=== PATIENT | female | born 1995 | race Caucasian/White ===

== ENCOUNTER 2024-10-28 13:03 | Emergency (ER) | payer SELFPAY ==
[2024-10-28 13:40] VITALS: BP 192/139; PULSE 67; RESP 16; TEMP 37; O2SAT 99; BMI 50.1
--- NOTE | 2024-10-28 14:15 | XRR_ITS ---
PROCEDURE INFORMATION: Exam: XR Thoracic Spine Exam date and time: 10/28/2024 3:15 PM Age: 28 years old Clinical indication: Pain in thoracic spine; Upper back pain that radiates around thoracic cavity x 1 week; No known injury or recent illness; Additional info: Upper back paupper back pain that radiates around thoracic cavity x 1 week; No known injury or recent illness TECHNIQUE: Imaging protocol: Radiologic exam of the thoracic spine. Views: 3 views. COMPARISON: CR XR chest 2V* [id number] 10/28/2024 3:15 PM FINDINGS: Bones/joints: No significant scoliosis. No compression deformity or traumatic subluxation. No aggressive osseous lesions. Soft tissues: Prevertebral soft tissues within normal limits. XR/XR thoracic spine 2V [id number] IMPRESSION: No acute compression deformity or traumatic subluxation.
--- NOTE | 2024-10-28 14:15 | XRR_ITS ---
PROCEDURE INFORMATION: Exam: XR Chest Exam date and time: 10/28/2024 3:15 PM Age: 28 years old Clinical indication: Right-sided and left-sided; Upper back pain that radiates around thoracic cavity x 1 week; No known injury or recent illness TECHNIQUE: Imaging protocol: Radiologic exam of the chest. Views: 2 views. COMPARISON: CR XR thoracic spine 2V [id number] 10/28/2024 3:15 PM FINDINGS: Lungs: Unremarkable. No consolidation. Pleural spaces: Unremarkable. No pleural effusion. No pneumothorax. Heart/Mediastinum: Unremarkable. No cardiomegaly. Bones/joints: Unremarkable. XR/XR chest 2V* [id number] IMPRESSION: No acute findings.
[2024-10-28 14:16] VITALS: BP 148/84
[2024-10-28 14:38] LABS: Basophils # 0.1 10^3/uL (0.0-0.1); Eosinophils # 0.3 10^3/uL (0.0-0.8); Eosinophils % 4.6 %; Hematocrit 40.3 % (36-47); Lymphocytes # 1.9 10^3/uL (0.8-4.8); Lymphocytes % 27.6 %; Mean Corpuscular Hemoglobin 25.9 pg (27-33); Mean Corpuscular Volume 83.6 fl (85-98); Mean Platelet Volume 9.9 fL (7.4-10.4); Monocytes # 0.6 10^3/uL (0.2-0.9); Monocytes % 9.3 %; Neutrophils # 3.88 10^3/uL (1.8-7.7); Neutrophils % 57.2 %; Nucleated Red Blood Cells % 0 %; Platelet Count 315 10^3/cmm (157-399); Red Blood Count 4.82 10^6/uL (3.85-5.65); Red Cell Distribution Width 13.2 % (12.1-15.1); White Blood Count 6.78 10^3/uL (3.29-11.43)
[2024-10-28 14:56] LABS: HCG, Serum Qual Negative (Negative)
[2024-10-28 14:59] LABS: Alanine Aminotransferase 16 U/L (0-33); Albumin Level 3.9 g/dL (3.5-5.2); Alkaline Phosphatase 134 U/L (35-105); Anion Gap 11.1 (5-19); Aspartate Amino Transferase 13 U/L (0-32); Blood Urea Nitrogen 12 mg/dL (6-20); Calcium 8.6 mg/dL (8.5-10.5); Carbon Dioxide 24 mmol/L (22-29); Chloride 108 mmol/L (98-107); Creatinine Clr Calc Pharmacy 202.9897; Globulin 2.9 g/dL (1.3-4.6); Glomerular Filtration Rate 146.9 mL/min (90-130); Glucose 88 mg/dL (65-115); Osmolality Calculated 287 mOsm/kg (285-295); Potassium 4.1 mmol/L (3.5-5.1); Sodium 139 mmol/L (136-145); Total Bilirubin 0.2 mg/dL (0.15-1.2); Total Protein 6.8 g/dL (6.6-8.7)
[2024-10-28] MEDS: orphenadrine 30 mg/mL Inj 2 mL 60 MG IVP (15:13)
[2024-10-28] MEDS: ketorolac 30 mg/mL INJ 15 MG IVP (15:13)
[2024-10-28] MEDS: methylPREDNISolone sod succ 125 mg/2 mL INJ IVP (15:13)
--- NOTE | 2024-10-28 15:24 | ED_ITS ---
Documented by User: DENNIS Colon 10/28/24 17:24 HPI - Back Pain/Injury 2 General: Chief Complaint: Back Pain/Injury Stated Complaint: Back Pain, numbness in legs 1 wk ago get worse Time Seen by Provider: 10/28/24 13:38 Source: patient Mode of arrival: ambulatory Limitations: no limitations History of Present Illness: Patient is a 28-year-old female who presents to the emergency department with bilateral mid back pain. She states this began about a week ago and she denies any injury that led to this. She states she has had some numbness/tingling in her bilateral legs from about the knee down. She states she does have a history of MS but is not currently on any medications for this at this time. She denies and expects her period within the next few days. She denies any fever or chills. She denies any loss of bowel or bladder control. She denies any numbness on the inside of her upper legs (saddle paresthesias.) she denies any fall or any known traumatic injuries. She denies any chest pain or shortness of breath but does report some pain in her bilateral upper back when she takes a deep breath in. She reports pain is starting to wrap around the side of her chest on each side. She denies any blood in her urine. She denies any pain or burning with urination. She states the symptoms have been getting worse and she presents to the emergency department for further evaluation and treatment. She states she has been using some ibuprofen at home that helps a little bit but has not taken any today. She denies any allergies to any medications. She denies any history of diabetes. Associated symptoms: Deny abdominal pain, chills, dysuria, fever(s), nausea or vomiting Related Data Previous Rx's ?Medication ?Instructions ?Recorded methocarbamol 750 mg tablet 1,500 mg (2 x 750 mg) PO T ID PRN 10/28/24 muscle pain #30 tabs prednisone 20 mg tablet 40 mg (2 x 20 mg) PO DAILY 5 days 10/28/24 #20 tabs Allergies Allergy/AdvReac Type Severity Reaction Status Date / Time No Known Allergies Allergy Verified 10/28/24 14:15 Review of Systems 2 Const: Denies: fever(s) or chills Eyes: Denies: change in vision ENMT: Denies: throat pain, dental pain or ear or mastoid pain Card: Denies: chest pain, palpitations, irregular heart rhythm or edema Resp: Denies: dyspnea, productive cough, non-productive cough, wheezing or hemoptysis GI: Denies: abdominal pain, nausea, vomiting or hematemesis : Denies: flank pain, difficulty voiding, dysuria or urinary frequency Musc: Reports: back pain (Mid back); Denies: extremity pain or extremity swelling Skin/Breast: Denies: rash, pruritus or erythema Neuro: Reports: numbness in extremities (Bilateral lower legs, intermittent numbness and tingling) and sensory changes (Bilateral lower legs below the knee); Denies: headache(s) or dizziness Psych: Denies: anxiety Endo: Denies: polyuria or polydipsia Randy/Lymph: Denies: easy bruising, easy bleeding or petechiae All/Imm: Denies: throat swelling or tongue swelling PFSH ED 2 PFSH: Medical History (Updated 10/28/24 @ 17:02 by DENNIS Colon) MS (multiple sclerosis) Social History (Updated 10/28/24 @ 15:29 by DENNIS Colon) Smoking and tobacco/nicotine status: never used tobacco/nicotine Physical Exam 2 Const: COMMON NORMALS: no acute distress, patient oriented x3 and alert G ENERAL APPEARANCE: cooperative ORIENTATION/CONSCIOUSNESS: Yes awake, Yes oriented to person, Yes oriented to place and Yes oriented to time HENMT: COMMON NORMALS: normocephalic, atraumatic, external ears normal, EAC's normal, TM's normal bilaterally and Normal external nose present HEAD & SCALP: normocephalic and atraumatic FACE & SINUS: normal facial exam and face symmetric NOSE: Normal external nose present EXTERNAL EAR: Yes external ears normal EXTERNAL AUDITORY CANAL: EAC's normal TYMPANIC MEMBRANE: TM's normal bilaterally MOUTH: Normal oral and palatal mucosa present THROAT: p osterior oropharynx normal Eye: COMMON NORMALS: Equal, round and reactive pupils present, EOMs intact bilaterally and conjunctivae normal CONJUNCTIVA: Yes conjunctivae normal P UPIL: Yes Equal, round and reactive pupils present Neck/C-Spine: COMMON NORMALS: full ROM, supple and no meningeal signs G ENERAL: Yes normal visual inspection Chest: CHEST: Yes tenderness other (Posterior chest wall bilaterally), No Ecchymosis present, No wounds and Yes other (Mild tenderness of posterior chest bilaterally, no crepitus) Resp: COMMON NORMALS: normal respiratory effort, No retractions, No use of accessory muscles and clear to auscultation bilaterally EFFORT & INSPECTION: Yes able to speak in complete sentences AUSCULTATION: clear to auscultation bilaterally, no crackles, no rales, no rhonchi and no wheezes Cardio: COMMON NORMALS: regular rate and regular rhythm RATE: regular rate RHYTHM: regular rhythm GI: COMMON NORMALS: Normal to inspection, nondistended, normoactive bowel sounds present, Soft to palpation and non-tender PALPATION: Yes Soft to palpation : COMMON NORMALS: Yes no CVA tenderness BLADDER/KIDNEY EXAM: Yes no CVA tenderness and No CVA tenderness Back/Pelvis: COMMON NORMALS: no CVA tenderness GENERAL BACK: No CVA tenderness THORACIC SPINE/UPPER BACK: Yes normal to inspection (No rash or blistering), Yes pain with ROM and No thoracic spinal tenderness (No significant tenderness along the spine, there is some rib tenderness) LUMBAR SPINE/LOWER BACK: Yes normal to inspection, Yes lumbar ROM normal, No ROM limited and No lumbar spinal tenderness Extremity: COMMON NORMALS: normal to inspection, full ROM, no calf tenderness and no pedal edema NARRATIVE EXTREMITY EXAM: Patient does report some decreased light touch sensation in bilateral lower extremities from the knee down. She denies any saddle paresthesias or numbness in the saddle region. Patient's strength is good. GENERAL: No calf tenderness and No edema Neuro: COMMON NORMALS: patient oriented x3 and moves all extremities S ENSORIUM/ORIENTATION: Yes alert, Yes oriented to person, Yes oriented to place and Yes oriented to time MENINGEAL SIGNS: Yes no meningeal signs SPEECH: s peech normal SENSORY EXAM: Yes extremities (Patient does report some decreased light touch sensation to bilateral LE) MONOFILAMENT EXAM PERFORMED: No Psych: COMMON NORMALS: mental status grossly normal and speech normal A TTITUDE: Yes calm ACTIVITY/MOTOR BEHAVIOR: Yes appropriate eye contact S PEECH: Yes normal speech Skin: COMMON NORMALS: no rashes or lesions noted, no wounds and no petechiae GENERAL SKIN EXAM: no rashes or lesions noted RASHES: no rashes Course 2 ED course: I discussed the case with Dr. Colmenares who agrees with the assessment and plan. Reevaluation(s): Reevaluation #1: Patient states she is starting to feel better after those medications were given. She still has pain with movement but states the pain seems to be worse on the right side now than the left side. She does have greater tenderness on the right on exam at this time. We are awaiting radiology results. The patient think she can give us a urine sample now. We will collect that try and rule out any signs of urinary tract infection/kidney infection or any blood in the urine that could indicate a kidney stone. Time: 15:56 Vital Signs: Vital signs: Vital Signs Temperature 98.6 F 10/28/24 13:40 Pulse Rate 67 10/28/24 13:40 Respiratory Rate 16 10/28/24 13:40 Blood Pressure 148/84 10/28/24 14:16 Pulse Oximetry 99 10/28/24 13:40 Oxygen Delivery Me thod Room Air 10/28/24 13:40 MDM - Back Pain/Injury Medical Decision Making Patient was advised of the preliminary x-ray findings. I did not see any obvious fractures, pneumonia or other abnormalities on the x-rays. The patient states she is feeling better after the medications. She did not have an elevated white blood cell count and no signs of infection or blood in the urine. I recommended she use the medicines as directed and follow-up with her primary care provider and her neurologist for further evaluation. The patient does have some mild numbness and tingling from the knees down that could be a result of her MS. She denies any loss of bowel or bladder control or any saddle paresthesias. She denies any traumatic injury. I recommended no work tomorrow or Wednesday but she can return on Wednesday. She will need to be very careful not to do a lot of bending and lifting. I recommended that she follow-up as instructed and return to the emergency department with any worsening symptoms. The patient expressed understanding. Differential Diagnosis Likely renal colic, pyelonephritis and thoracic back pain Labs I reviewed the patient's lab results. 10/28/24 14:32 10/28/24 14:32 Radiology Impressions Chest X-Ray 10/28/24 14:15 IMPRESSION: No acute findings. Thoracic Spine X-Ray 10/28/24 14:15 IMPRESSION: No acute compression deformity or traumatic subluxation. Laboratory Results WBC 6.78 10^3/uL (3.29-11.43) 10/28/24 14:32 RBC 4.82 10^6/uL (3.85-5.65) 10/28/24 14:32 Hgb 12.50 g/dL (11.27-16.99) 10/28/24 14:32 Hct 40.3 % (36-47) 10/28/24 14:32 MCV 83.6 fl (85-98) L 10/28/24 14:32 MCH 25.9 pg (27-33) L 10/28/24 14:32 MCHC 31.0 g/dL (30-55) 10/28/24 14:32 RDW 13.2 % (12.1-15.1) 10/28/24 14:32 Plt Count 315 10^3/cmm (157-399) 10/28/24 14:32 MPV 9.9 fL (7.4-10.4) 10/28/24 14:32 Neut % (Auto) 57.2 % 10/28/24 14:32 Lymph % (Auto) 27.6 % 10/28/24 14:32 Vigo % (Auto) 9.3 % 10/28/24 14:32 Eos % (Auto) 4.6 % 10/28/24 14:32 Baso % (Auto) 1.0 % 10/28/24 14:32 Neut # (Auto) 3.88 10^3/uL (1.8-7.7) 10/28/24 14:32 Lymph # (Auto) 1.9 10^3/uL (0.8-4.8) 10/28/24 14:32 Vigo # (Auto) 0.6 10^3/uL (0.2-0.9) 10/28/24 14:32 Eos # (Auto) 0.3 10^3/uL (0.0-0.8) 10/28/24 14:32 Baso # (Auto) 0.1 10^3/uL (0.0-0.1) 10/28/24 14:32 Nucleated RBC % (auto) 0 % 10/28/24 14:32 Nucleated RBCs # 0.0 /100WBC 10/28/24 14:32 Sodium 139 mmol/L (136-145) 10/28/24 14:32 Potassium 4.1 mmol/L (3.5-5.1) 10/28/24 14:32 Chloride 108 mmol/L (98-107) H 10/28/24 14:32 Carbon Dioxide 24 mmol/L (22-29) 10/28/24 14:32 Anion Gap 11.1 (5-19) 10/28/24 14:32 BUN 12 mg/dL (6-20) 10/28/24 14:32 Creatinine 0.5 mg/dL (0.5-0.9) 10/28/24 14:32 GFR Calculation 146.9 mL/min (90-130) H 10/28/24 14:32 Glucose 88 mg/dL (65-115) 10/28/24 14:32 Calculated Osmolality 287 mOsm/kg (285-295) 10/28/24 14:32 Calcium 8.6 mg/dL (8.5-10.5) 10/28/24 14:32 Total Bilirubin 0.2 mg/dL (0.15-1.2) 10/28/24 14:32 AST 13 U/L (0-32) 10/28/24 14:32 ALT 16 U/L (0-33) 10/28/24 14:32 Alkaline Phosphatase 134 U/L (35-105) H 10/28/24 14:32 Total Protein 6.8 g/dL (6.6-8.7) 10/28/24 14:32 Albumin 3.9 g/dL (3.5-5.2) 10/28/24 14:32 Globulin 2.9 g/dL (1.3-4.6) 10/28/24 14:32 HCG, Qual Negative (Negative) 10/28/24 14:32 Urine Color Yellow (Yellow) 10/28/24 16:06 Urine Appearance Clear (CLEAR) 10/28/24 16:06 Urine pH 5.0 (5-7) 10/28/24 16:06 Ur Specific [place] 1.025 (1.005-1.030) 10/28/24 16:06 Urine Protein Negative (Negative) 10/28/24 16:06 Urine Glucose (UA) Negative (Normal) 10/28/24 16:06 Urine Ketones Negative (Negative) 10/28/24 16:06 Urine Blood Negative (Negative) 10/28/24 16:06 Urine Nitrate Negative (Negative) 10/28/24 16:06 Urine Bilirubin Negative (Negative) 10/28/24 16:06 Urine Urobilinogen 0.2 mg/dL (Negative) 10/28/24 16:06 Ur Leukocyte Esterase Negative (Negative) 10/28/24 16:06 Urine RBC 0-4 /hpf (0-2) H 10/28/24 16:06 Urine WBC 0-4 /hpf (0-5) H 10/28/24 16:06 Ur Squamous Epith Cells 5-10 /hpf (0-5) H 10/28/24 16:06 Amorphous Sediment Not Reportable 10/28/24 16:06 Urine Bacteria 2+ /hpf (NONE) H 10/28/24 16:06 All radiology interpretation(s) finalized by discharge Critical Care Time 2 Critical Care Time: Critical Care Time: No Discharge Plan Discharge Patient Disposition: Home Clinical Impression: Acute bilateral thoracic back pain, Bilateral leg paresthesia, Hx of multiple sclerosis, Rib tenderness Condition: Stable Prescriptions: New prednisone 20 mg tablet 40 mg PO DAILY 5 Days Qty: 20 0RF methocarbamol 750 mg tablet 1,500 mg PO TID PRN (Reason: muscle pain) Qty: 30 0RF Rx Instructions: No alcohol use or driving with this medication. Discharge Orders: Discharge ED (Routine); Ordered 10/28/24 Ordered By: Ang Porter Referrals: Nelida Arizmendi MD [Family Provider] - Devon Disla MD [Primary Care Provider] - Discharge Diet: Usual diet Discharge Activity: Increase activity as tolerated Patient Instructions: Multiple Sclerosis, Thoracic Back Strain (ED), Opioid Safety, Pain Management Activity Restrictions/Additional Instructions: Take medications as directed. Your prescriptions were sent electronically to your preferred pharmacy ([facility] in [place].) Rest, avoid activities that make the pain worse such as bending, lifting or twisting. Alternate ice and heat: Ice for 20 minutes, then nothing for 20 minutes, then heat for 20 minutes. Repeat 3-4 times throughout the day. Follow-up with your doctor in 1 week for recheck. No work until Wednesday Return to the emergency department with any worsening symptoms such as increased pain, fever, loss of bowel or bladder control or any other worsening symptoms. Stand Alone Forms: Work/School Release Print Language: Norwegian Coding Level of Care Code ED Vertical Lathe Operator for Chg Fwd Documented by User: Viral Colmenares DO 10/28/24 17:46 HPI - Back Pain/Injury 2 General: Chief Complaint: Back Pain/Injury Stated Complaint: Back Pain, numbness in legs 1 wk ago get worse Time Seen by Provider: 10/28/24 13:38 Related Data Previous Rx's ?Medication ?Instructions ?Recorded methocarbamol 750 mg tablet 1,500 mg (2 x 750 mg) PO T ID PRN 10/28/24 muscle pain #30 tabs prednisone 20 mg tablet 40 mg (2 x 20 mg) PO DAILY 5 days 10/28/24 #20 tabs Allergies Allergy/AdvReac Type Severity Reaction Status Date / Time No Known Allergies Allergy Verified 10/28/24 14:15 PFSH ED 2 PFSH: Medical History (Updated 10/28/24 @ 17:02 by DENNIS Colon) MS (multiple sclerosis) Social History (Updated 10/28/24 @ 15:29 by DENNIS Colon) Smoking and tobacco/nicotine status: never used tobacco/nicotine Course 2 Vital Signs: Vital signs: Vital Signs Temperature 98.6 F 10/28/24 13:40 Pulse Rate 67 10/28/24 13:40 Respiratory Rate 16 10/28/24 13:40 Blood Pressure 148/84 10/28/24 14:16 Pulse Oximetry 99 10/28/24 13:40 Oxygen Delivery Me thod Room Air 10/28/24 13:40 MDM - Back Pain/Injury Medical Decision Making Patient was advised of the preliminary x-ray findings. I did not see any obvious fractures, pneumonia or other abnormalities on the x-rays. The patient states she is feeling better after the medications. She did not have an elevated white blood cell count and no signs of infection or blood in the urine. I recommended she use the medicines as directed and follow-up with her primary care provider and her neurologist for further evaluation. The patient does have some mild numbness and tingling from the knees down that could be a result of her MS. She denies any loss of bowel or bladder control or any saddle paresthesias. She denies any traumatic injury. I recommended no work tomorrow or Wednesday but she can return on Wednesday. She will need to be very careful not to do a lot of bending and lifting. I recommended that she follow-up as instructed and return to the emergency department with any worsening symptoms. The patient expressed understanding. Chart reviewed and patient discussed with midlevel. Agree with assessment and plan. Labs 10/28/24 14:32 10/28/24 14:32 Radiology Impressions Chest X-Ray 10/28/24 14:15 IMPRESSION: No acute findings. Thoracic Spine X-Ray 10/28/24 14:15 IMPRESSION: No acute compression deformity or traumatic subluxation. Laboratory Results WBC 6.78 10^3/uL (3.29-11.43) 10/28/24 14:32 RBC 4.82 10^6/uL (3.85-5.65) 10/28/24 14:32 Hgb 12.50 g/dL (11.27-16.99) 10/28/24 14:32 Hct 40.3 % (36-47) 10/28/24 14:32 MCV 83.6 fl (85-98) L 10/28/24 14:32 MCH 25.9 pg (27-33) L 10/28/24 14:32 MCHC 31.0 g/dL (30-55) 10/28/24 14:32 RDW 13.2 % (12.1-15.1) 10/28/24 14:32 Plt Count 315 10^3/cmm (157-399) 10/28/24 14:32 MPV 9.9 fL (7.4-10.4) 10/28/24 14:32 Neut % (Auto) 57.2 % 10/28/24 14:32 Lymph % (Auto) 27.6 % 10/28/24 14:32 Vigo % (Auto) 9.3 % 10/28/24 14:32 Eos % (Auto) 4.6 % 10/28/24 14:32 Baso % (Auto) 1.0 % 10/28/24 14:32 Neut # (Auto) 3.88 10^3/uL (1.8-7.7) 10/28/24 14:32 Lymph # (Auto) 1.9 10^3/uL (0.8-4.8) 10/28/24 14:32 Vigo # (Auto) 0.6 10^3/uL (0.2-0.9) 10/28/24 14:32 Eos # (Auto) 0.3 10^3/uL (0.0-0.8) 10/28/24 14:32 Baso # (Auto) 0.1 10^3/uL (0.0-0.1) 10/28/24 14:32 Nucleated RBC % (auto) 0 % 10/28/24 14:32 Nucleated RBCs # 0.0 /100WBC 10/28/24 14:32 Sodium 139 mmol/L (136-145) 10/28/24 14:32 Potassium 4.1 mmol/L (3.5-5.1) 10/28/24 14:32 Chloride 108 mmol/L (98-107) H 10/28/24 14:32 Carbon Dioxide 24 mmol/L (22-29) 10/28/24 14:32 Anion Gap 11.1 (5-19) 10/28/24 14:32 BUN 12 mg/dL (6-20) 10/28/24 14:32 Creatinine 0.5 mg/dL (0.5-0.9) 10/28/24 14:32 GFR Calculation 146.9 mL/min (90-130) H 10/28/24 14:32 Glucose 88 mg/dL (65-115) 10/28/24 14:32 Calculated Osmolality 287 mOsm/kg (285-295) 10/28/24 14:32 Calcium 8.6 mg/dL (8.5-10.5) 10/28/24 14:32 Total Bilirubin 0.2 mg/dL (0.15-1.2) 10/28/24 14:32 AST 13 U/L (0-32) 10/28/24 14:32 ALT 16 U/L (0-33) 10/28/24 14:32 Alkaline Phosphatase 134 U/L (35-105) H 10/28/24 14:32 Total Protein 6.8 g/dL (6.6-8.7) 10/28/24 14:32 Albumin 3.9 g/dL (3.5-5.2) 10/28/24 14:32 Globulin 2.9 g/dL (1.3-4.6) 10/28/24 14:32 HCG, Qual Negative (Negative) 10/28/24 14:32 Urine Color Yellow (Yellow) 10/28/24 16:06 Urine Appearance Clear (CLEAR) 10/28/24 16:06 Urine pH 5.0 (5-7) 10/28/24 16:06 Ur Specific [place] 1.025 (1.005-1.030) 10/28/24 16:06 Urine Protein Negative (Negative) 10/28/24 16:06 Urine Glucose (UA) Negative (Normal) 10/28/24 16:06 Urine Ketones Negative (Negative) 10/28/24 16:06 Urine Blood Negative (Negative) 10/28/24 16:06 Urine Nitrate Negative (Negative) 10/28/24 16:06 Urine Bilirubin Negative (Negative) 10/28/24 16:06 Urine Urobilinogen 0.2 mg/dL (Negative) 10/28/24 16:06 Ur Leukocyte Esterase Negative (Negative) 10/28/24 16:06 Urine RBC 0-4 /hpf (0-2) H 10/28/24 16:06 Urine WBC 0-4 /hpf (0-5) H 10/28/24 16:06 Ur Squamous Epith Cells 5-10 /hpf (0-5) H 10/28/24 16:06 Amorphous Sediment Not Reportable 10/28/24 16:06 Urine Bacteria 2+ /hpf (NONE) H 10/28/24 16:06 Discharge Plan Discharge Patient Disposition: Home Clinical Impression: Acute bilateral thoracic back pain, Bilateral leg paresthesia, Hx of multiple sclerosis, Rib tenderness Condition: Stable Prescriptions: New prednisone 20 mg tablet 40 mg PO DAILY 5 Days Qty: 20 0RF methocarbamol 750 mg tablet 1,500 mg PO TID PRN (Reason: muscle pain) Qty: 30 0RF Rx Instructions: No alcohol use or driving with this medication. Discharge Orders: Discharge ED (Routine); Ordered 10/28/24 Ordered By: Ang Porter Referrals: Nelida Arizmendi MD [Family Provider] - Naif,Devon Robles MD [Primary Care Provider] - Discharge Diet: Usual diet Discharge Activity: Increase activity as tolerated Patient Instructions: Multiple Sclerosis, Thoracic Back Strain (ED), Opioid Safety, Pain Management Activity Restrictions/Additional Instructions: Take medications as directed. Your prescriptions were sent electronically to your preferred pharmacy ([facility] pharmacy in [place].) Rest, avoid activities that make the pain worse such as bending, lifting or twisting. Alternate ice and heat: Ice for 20 minutes, then nothing for 20 minutes, then heat for 20 minutes. Repeat 3-4 times throughout the day. Follow-up with your doctor in 1 week for recheck. No work until Wednesday Return to the emergency department with any worsening symptoms such as increased pain, fever, loss of bowel or bladder control or any other worsening symptoms. Stand Alone Forms: Work/School Release Print Language: Norwegian Coding Level of Care Code ED Vertical Lathe Operator for Edward Tuttle
[2024-10-28 16:44] LABS: Bilirubin Urine Negative (Negative); Blood Urine Negative (Negative); Glucose Urine UA Negative (Normal); Ketones Urine Negative (Negative); Leukocyte Esterase Urine Negative (Negative); Nitrate Urine Negative (Negative); Protein Urine Negative (Negative); Specific Gravity, Urine 1.025 (1.005-1.030); Urine Appearance Clear (CLEAR); Urine Color Yellow (Yellow); Urobilinogen Urine 0.2 mg/dL (Negative)
[2024-10-28 17:06] LABS: Add Urine Microscopic? YES; Bacteria Urine 2+ /hpf; RBC Urine 0-4 /hpf (0-2); WBC Urine 0-4 /hpf (0-5)
== END 2024-10-28 17:19 | disposition home or self-care (01) ==
PROVIDERS: Emergency Provider Physician Assistant; Family Provider Family Medicine; PCP Family Medicine
DX: M54.6 Pain in thoracic spine (principal); R20.2 Paresthesia of skin; R07.81 Pleurodynia; Z86.69 Personal history of other diseases of the nervous system and sense organs
CPT/HCPCS: 12345; 36415; 71046; 72070; 80053; 81001; 84703; 85025; 87086; 96374; 96375; 99284; J1885; J2360; J2919